=== PATIENT | female | born 1940 | race Caucasian/White ===

== ENCOUNTER 2016-11-10 08:23 | Day surgery (SDC) | payer BC ==
[2016-11-06 09:55] LABS: WBC (NOT ORDERED) (RFLEX) 0 (0-5)
[2016-11-06 10:21] LABS: BASOPHILS 0.3 %; BASOPHILS ABSOLUTE 0.02 10/3/uL (0.0-0.16); EOSINOPHILS 1.3 %; EOSINOPHILS ABSOLUTE 0.08 10/3/uL (0.0-0.53); HEMOGLOBIN 11.1 g/dL (12.0-16.0); IMMATURE GRANULOCYTES 0.3 %; IMMATURE GRANULOCYTES ABSOLUTE 0.02 10/3/uL (0.0-0.11); LYMPHOCYTES 24.7 %; LYMPHOCYTES ABSOLUTE 1.53 10/3/uL (0.67-4.30); MEAN CORPUS HGB CONC 31.7 g/dL (32.0-36.0); MEAN CORPUSCULAR HEMOGLOB 31.4 pg (26.0-34.0); MEAN CORPUSCULAR VOLUME 98.9 fL (80-100); MEAN PLATELET VOLUME 10.2 fL (9.2-13.0); MONOCYTES 10.2 %; MONOCYTES ABSOLUTE 0.63 10/3/uL (0.21-1.20); NEUTROPHILS 63.2 %; NEUTROPHILS ABSOLUTE 3.92 10/3/uL (2.02-8.40); PLATELET COUNT 192 10/3/uL (150-400); RBC DISTRIBUTION WIDTH 13.7 % (12.0-16.0); RED CELL COUNT 3.54 10/6/uL (4.0-5.6); WHITE BLOOD CELLS 6.2 10/3/uL (4.5-10.5)
[2016-11-06 10:22] LABS: MANUAL DIFF NO %
[2016-11-06 10:23] LABS: ASCORBIC ACID (UR NOT ORDER) 40 (NEG); BILIRUBIN, URINE NEGATIVE (NEG); KETONE, URINE NEGATIVE (NEG); LEUKOCYTE ESTERASE(NOT OR NEG (NEG)
[2016-11-06 10:35] LABS: ALBUMIN 3.5 G/DL (3.5-5.0); ALKALINE PHOSPHATASE 54 U/L (45-117); BUN (BLOOD UREA NITROGEN) 29 MG/DL (6-23); CALCIUM, SERUM 8.9 MG/DL (8.5-10.4); CHLORIDE, SERUM 111 MMOL/L (96-112); CO2 (CARBON DIOXIDE) 26 MMOL/L (24-34); CREATININE 1.39 MG/DL (0.55-1.02); GFR AFRICAN AMERICAN 42 ML/MIN (>=60); GFR NON AFRICAN AMERICAN 36 ML/MIN (>=60); GLOBULIN 3.6 G/DL (2.5-4.1); GLUCOSE, SERUM 104 MG/DL (60-99); POTASSIUM, SERUM 3.6 MMOL/L (3.5-5.3); SGOT(AST) 21 U/L (5-40); SGPT(ALT) 15 U/L (5-65); SODIUM, SERUM 145 MMOL/L (135-148); TOTAL BILIRUBIN 0.4 MG/DL (0-1.2); TOTAL PROTEIN 7.1 G/DL (6.0-8.5)
--- NOTE | ~2016-11-10 | OP ---
Record Of Operation [facility] [address] [place]. [address] NAME: JIMMY DEL REAL : 36 STATUS : REG [facility] PAT#: [id number] AGE: 76 ADM/REG DATE : 11/10/16 MR#: [id number] REPORT SERV DATE: 11/10/16 DICTATED BY: WOODY SEGOVIA DATE: 11/10/16 REPORT STATUS : Draft TRANSCRIBED BY: MODL DATE: 11/10/16 DATE OF PROCEDURE: 11/10/2016 PREOPERATIVE DIAGNOSIS: Calculus left distal ureter. Possible calculus left upper ureter. OPERATIVE PROCEDURES: Left ureteroscopy, holmium laser lithotripsy, distal ureteral stones and stone extraction, and proximal ureteroscopy (no stone identified). ANESTHESIA: General inhalation. SURGEON: Dr. Segovia. SPECIMENS: 1. Stone fragments. 2. Cath urine for culture. ESTIMATED BLOOD LOSS: Less than 5 mL. DRAINS: One #6-Polish 26 cm Microvasive Percuflex stent without removal suture attached. COMPLICATIONS: None. IMMEDIATE POSTOP: Satisfactory. DESCRIPTION OF PROCEDURE: The patient was brought to the cysto suite, given inhalational anesthetic, and placed in the lithotomy position. Perineum and genitalia were prepped and draped in a sterile fashion. Video cystourethroscopy was then performed using a #22 cystoscope and Foroblique lens. Upon placing the cystoscope sheath, a specimen of catheterization bladder urine for culture and sensitivity was obtained. At this point, the right ureteral orifice was normal. Left ureteral orifice showed some proximal edema although there was no edema at the orifice per se. A 0.38 angled Glidewire was then passed through a Pollack catheter into the ureteral orifice and up into what was felt to be the pyelocalyceal system on on-table fluoroscopy. The Pollack catheter was then advanced over the wire and when felt to be in the pyelocalyceal system, the wire was removed. Dilute contrast was injected in a retrograde fashion confirming that it was in fact within the collecting system. There was no extravasation confirming that the integrity of the collecting system remained intact. A 0.35 sensor wire was then passed through the Pollack catheter which was then removed leaving the wire in place. Then the ureteral orifice and distal ureter were dilated using the obturator of an 07/13 ureteral access sheath. This was done without difficulty. Obturator was removed leaving the wire in place. At this point, a short rigid ureteroscope was passed per urethra and easily into the dilated ureteral orifice. Two stones were identified, one larger about 4 to 6 mm and the other, smaller about 2 mm. The larger stone could not be engaged in a Shea basket, required holmium laser lithotripsy using a 325 micron Holmium laser fiber. Stone was cracked into fragments which were then removed. The smaller stone was removed as well. The scope was then passed up well into the proximal ureter without any trauma and no ureteral stones were identified Record Of Operation [place] [address] [facility] [place]. [address] NAME: JIMMY DEL REAL : 36 STATUS : REG [facility]#: [id number] AGE: 76 ADM/REG DATE : 11/10/16 MR#: [id number] REPORT SERV DATE: 11/10/16 DICTATED BY: WOODY SEGOVIA DATE: 11/10/16 REPORT STATUS : Draft TRANSCRIBED BY: DENNY DATE: 11/10/16 further proximal. At this point, contrast was injected through the ureteroscope revealing a moderately dilated proximal ureter and pyelocaliceal system. Ureteroscope was then removed under video monitoring. There was no evidence of ureteral trauma. The cystoscope was then reintroduced over the wire and a 6-Polish 26 cm Microvasive Percuflex contour stent was passed over the wire and pushed up into the pyelocalyceal system. The wire was removed. The stent assumed normal configuration both proximally and distally as documented on on- table fluoroscopy and the patient was then awakened and sent to recovery in satisfactory condition. Stones were sent to the lab for stone analysis. There were no operative complications. /DENNY Woody Segovia M.D. / [id number] CC: Cecil Bird
[~2016-11-10 08:23] MED LIST: ASAB PO; CALTRA600D PO; CELEBREX2 PO; CENTRUM TAB1 TAB PO; EVISTA60 PO; GLUCCHONDR PO; LOTENSIN HCT1 TA3 PO; NORCO1 TA1 PO; PRESERVISION A1 EACH PO; PRILO PO
[2016-11-14 11:37] LABS: STONE COMPOSITION TWO DNR (())
== END 2016-11-10 15:25 | disposition home or self-care (01) ==
LOC: SDC 08:23
PROVIDERS: Urology
PROC: 0T778DZ Dilation of Left Ureter with Intraluminal Device, Via Natural or Artificial Opening Endoscopic (ICD-10-PCS; 2016-11-10)
PROC: 0TF78ZZ Fragmentation in Left Ureter, Via Natural or Artificial Opening Endoscopic (ICD-10-PCS; principal; 2016-11-10 09:45)
DX: N20.1 Calculus of ureter (principal); I10 Essential (primary) hypertension; M19.90 Unspecified osteoarthritis, unspecified site; K21.9 Gastro-esophageal reflux disease without esophagitis; Z88.1 Allergy status to other antibiotic agents; Z98.41 Cataract extraction status, right eye; Z98.42 Cataract extraction status, left eye; Z96.1 Presence of intraocular lens; Z87.891 Personal history of nicotine dependence; Z90.710 Acquired absence of both cervix and uterus; Z87.442 Personal history of urinary calculi; Z98.890 Other specified postprocedural states
CPT/HCPCS: 74420; 80053; 81001; 82365; 85025; 87086; 93005; C1726; C1758; C1769; C2617; J2250; J2370; J2405; J2710; J3010; Q9967